=== PATIENT | female | born 1965 | race Caucasian/White ===

== ENCOUNTER 2017-07-26 11:55 | Emergency (ER) | payer OTHER ==
[2017-07-26] MEDS ORDERED: ALPRAZolam 0.5 MG TABLET ×2 (13:21)
== END 2017-07-26 14:13 | disposition home or self-care (01) ==
LOC: ER 11:55
DX: S93.401A Sprain of unspecified ligament of right ankle, initial encounter (principal); R07.81 Pleurodynia; V89.2XXA Person injured in unspecified motor-vehicle accident, traffic, initial encounter; Y93.89 Activity, other specified; Y92.488 Other paved roadways as the place of occurrence of the external cause; Y99.8 Other external cause status
CPT/HCPCS: 71101; 73610; 99284-25